=== PATIENT | male | born 1985 | race Caucasian/White ===

== ENCOUNTER 2020-05-31 19:15 | Emergency (ER) | payer OTHER ==
[~2020-05-31] VITALS: Ht 175.3 cm; Wt 67.7 kg
[2020-05-31 19:30] VITALS: BP 158/99; Ht 175.3 cm; Wt 67.7 kg
[2020-05-31] MEDS ORDERED: HYDROCODON-ACE1 EA10 PO (22:07)
== END 2020-05-31 22:28 | disposition home or self-care (01) ==
LOC: D.ER 19:15
DX: S42.102A Fracture of unspecified part of scapula, left shoulder, initial encounter for closed fracture (principal); S22.39XA Fracture of one rib, unspecified side, initial encounter for closed fracture; S00.91XA Abrasion of unspecified part of head, initial encounter; V19.9XXA Pedal cyclist (driver) (passenger) injured in unspecified traffic accident, initial encounter; Y93.9 Activity, unspecified; Y92.9 Unspecified place or not applicable